=== PATIENT | male | born 1950 | race Caucasian/White ===

== ENCOUNTER → 2018-06-01 | Outpatient (CLI) | payer MEDICARE, OTHER | END | disposition home or self-care (01) | LOC: PCVCCLINIC 11:36 | PROVIDERS: ATTEND Internal Medicine Cardiovascular Disease | DX: R00.2 Palpitations (principal); I63.89 Other cerebral infarction; E78.00 Pure hypercholesterolemia, unspecified; I10 Essential (primary) hypertension; E11.9 Type 2 diabetes mellitus without complications; E78.5 Hyperlipidemia, unspecified; Z87.19 Personal history of other diseases of the digestive system; Z87.891 Personal history of nicotine dependence; Z79.82 Long term (current) use of aspirin | CPT/HCPCS: 36415; 80061; 93005; G0463 ==

== ENCOUNTER → 2018-06-20 | Outpatient (CLI) | payer MEDICARE, OTHER ==
--- NOTE | 2018-06-20 15:32 | PCVCIMAG ---
APPROVED REPORT Study performed: 06/20/2018 13:26:23 Exam: Stress Echocardiogram Indication: Hypertension, Hyperlipidemia,SVT Patient Location: Echo lab Stress Nurse: Angela Damon RN Room #: 2 Status: routine Ht: 5 ft 11 in HR: 117 bpm BP: 106/68 mmHg Rhythm: Sinus Tachycardia, Bifascicular block Medical History Medical History: Diabetes,, Tobacco history (Former),CVA Cardiac Risk Factors: DM, Hyperlipidemia, Tobacco History (Former), HTN Previous Cardiac Procedures: none Pretest Chest Pain Characteristics: No chest pain Exercise History: Physically active Procedure The patient underwent an Exercise Stress Test using the Alexander Protocol. Blood pressure, heart rate, and EKG were monitored. An Echocardiogram was performed by metal room dental technician in four stages in quad fashion. At peak stress, four selected images were obtained and placed side by side with resting images for comparison. Stress Test Details Stress Test: Exercise stress was performed using a manual protocol. HR Resting HR: 117 bpmMax Heart Rate (APMHR): 151 bpm Max HR Achieved: 171 bpmTarget HR (85% APMHR): 128 bpm % of APMHR: 113 Recovery HR: 120 bpm HR response to stress: Normal HR response to stress,tachy at rest BP Resting BP: 106/68 mmHg Max BP: 162/80 mmHg Recovery BP: 124/68 mmHg BP response to stress: Normal blood pressure response to stress. ECG Resting ECG: Sinus Tachycardia, bifascicular block Stress ECG: same ST Change: Nondiagnostic ST abnormalities Arrhythmia: PVCs at peak exercise Recovery ECG: Sinus Tachycardia, bifascicular block Recovery ST Change: Non-ischemic Recovery Arrhythmia: None Clinical Reason for Termination: Maximal effort Stress Symptoms: Dyspnea, Leg Fatigue Exercise duration: 4 min 39 sec Highest Stage Achieved: manual Exercise capacity: 5.8 METs Overall Exercise Capacity for Age: Poor Angina Score: None No complications. Stress ECG Conclusion The patient exercised according to a manual protocol for 4:39 mins; achieving a work level of 5.8 METS. The resting heart rate of 117 bpm kailash to a maximum heart rate of 171 bpm. This value represents 113 % of the maximal, age-predicted heart rate. The resting blood pressure of 106/68 mmHg, kailash to a maximum blood pressure of 162/80mmHg. The exercise test was stopped due to fatigue . Pre-Stress Echo The resting Echocardiogram showed normal left ventricular contractility with an estimated Ejection Fraction of about 50-55%. The resting Echocardiogram demonstrated wall motion abnormality in the septal wall consistent with a LBBB . Normal wall motion in all segments on baseline images except as stated above. Post-Stress Echo The stress Echocardiogram showed normal left ventricular contractility with an estimated Ejection Fraction of about 60-65%. Normal augmentation of wall motion in all segments on post stress images. Clinical No clinical or ECG evidence for ischemia. Conclusion Clinical Response: Non-ischemic Exercise Capacity: Below Average Stress ECG Response: Indeterminant Stress Echo Images: Non-ischemic No clinical, EKG or echocardiographic evidence for ischemia. No echocardiographic evidence for exercise induced ischemia. Normal stress echocardiogram with maximal exercise stress. No prior study available for comparison. <Conclusion> No clinical, EKG or echocardiographic evidence for ischemia. No echocardiographic evidence for exercise induced ischemia. Normal stress echocardiogram with maximal exercise stress.
== END | disposition home or self-care (01) ==
LOC: PCVCIMAG 13:51
PROVIDERS: ATTEND Internal Medicine Cardiovascular Disease
DX: I10 Essential (primary) hypertension (principal); E78.5 Hyperlipidemia, unspecified; I47.1 Supraventricular tachycardia; I63.449 Cerebral infarction due to embolism of unspecified cerebellar artery; R00.2 Palpitations; E11.9 Type 2 diabetes mellitus without complications; Z87.891 Personal history of nicotine dependence
CPT/HCPCS: 93325; 93351

== ENCOUNTER → 2018-12-24 | Outpatient (CLI) | payer MEDICARE, OTHER | END | disposition home or self-care (01) | LOC: PCVCCLINIC 12:13 | PROVIDERS: ATTEND Internal Medicine Cardiovascular Disease | DX: I63.449 Cerebral infarction due to embolism of unspecified cerebellar artery (principal); E78.00 Pure hypercholesterolemia, unspecified; I10 Essential (primary) hypertension; E11.9 Type 2 diabetes mellitus without complications; E78.5 Hyperlipidemia, unspecified; Z72.0 Tobacco use; Z79.4 Long term (current) use of insulin | CPT/HCPCS: 36415; 80061; 93005; G0463 ==